=== PATIENT | male | born 2005 | race Caucasian/White ===

== ENCOUNTER 2024-07-09 13:17 | Emergency (ER) | payer MEDICAID ==
[~2024-07-09] VITALS: Ht 188 cm; Wt 125.0 kg
[2024-07-09 13:37] VITALS: BP 154/95; PULSE 81; RESP 18; TEMP 98.8; O2SAT 99
[2024-07-09] MEDS ORDERED: PRED10TA23 MT (15:27)
== END 2024-07-09 16:44 | disposition home or self-care (01) ==
LOC: ER 13:17
DX: R07.89 Other chest pain (principal); R05.9 Cough, unspecified; Z90.49 Acquired absence of other specified parts of digestive tract
CPT/HCPCS: 99283

== ENCOUNTER 2024-11-06 16:24 | Emergency (ER) | payer MEDICAID ==
[~2024-11-06] VITALS: Ht 188 cm; Wt 127.0 kg
[~2024-11-06 16:24] MED LIST: PRED10TA23 MT
[2024-11-06 16:27] VITALS: O2SAT 98
[2024-11-06] MEDS: KETOROLAC 30MG/ML VIAL IV STA (18:56)
[2024-11-06] MEDS: SODIUM CHLORIDE 0.9% 1,000 ML IV ONE (19:00)
[2024-11-06 20:15] LABS: HEMATOCRIT. 44.6 % (42.0-52.0); HEMOGLOBIN. 14.7 g/dL (14.0-18.0); MEAN CORPUSCULAR HEMOGLOBIN 30.1 pg (28.0-32.0); MEAN CORPUSCULAR VOLUME 91.2 fL (80.0-94.0); MEAN PLATELET VOLUME 7.3 fl (7.4-10.4); PLATELET 324 x1000/uL (130-400); RED BLOOD CELL COUNT 4.89 mill/uL (4.7-6.1); RED CELL DISTRIBUTION WIDTH 14.7 % (11.6-14.6); WHITE BLOOD COUNT 11.7 x1000/uL (4.5-11.0)
[2024-11-06 20:16] LABS: DIFFERENTIAL COMMENT 1
[2024-11-06 20:22] LABS: CHLORIDE 101 mEq/L (98-107); SODIUM 136 mEq/L (136-145)
[2024-11-06 20:23] LABS: CARBON DIOXIDE 24 mEq/L (21-32)
[2024-11-06 20:24] LABS: CALCIUM 9.8 mg/dL (8.7-10.4)
[2024-11-06 20:28] LABS: PROTHROMBIN TIME 11.1 sec (9.6-11.0)
[2024-11-06 20:29] LABS: CREATININE 0.8 mg/dL (0.6-1.3); GLUCOSE 96 mg/dL (70-105); UREA NITROGEN BLOOD 10 mg/dL (9-23)
[2024-11-06 23:01] LABS: PLATELET ESTIMATE NORMAL
[2024-11-06] MEDS ORDERED: CLINDAMYCIN 600 MG in DEXTROSE 5% WATER 50 ML IV STA (23:20)
[2024-11-07] MEDS: IOHEXOL-300 100 ML BOTTLE ONE (00:09)
[2024-11-07] MEDS: CLINDAMYCIN 600MG PREMIX 50 ML IV NR (00:13)
[2024-11-07 03:19] VITALS: BP 123/67; PULSE 88; RESP 17; TEMP 36.7
== END 2024-11-07 04:06 | disposition short-term general hospital (02) ==
LOC: ER 16:24
DX: L03.211 Cellulitis of face (principal); Z90.49 Acquired absence of other specified parts of digestive tract; Z79.899 Other long term (current) drug therapy
CPT/HCPCS: 99285; 70487; 96361; 96375; 80048; 85025; 85610; 36415; 96365; J1885; Q9967; J7030; J3490; J7060

== ENCOUNTER 2024-12-22 21:52 | Emergency (ER) | payer MEDICAID ==
[~2024-12-22] VITALS: Ht 190.5 cm; Wt 137.3 kg
[2024-12-22 22:29] VITALS: O2SAT 99
[2024-12-23] MEDS ORDERED: NAPR-681 MT (01:26)
[2024-12-23] MEDS ORDERED: CYCL10TA21 MT (01:26)
[2024-12-23] MEDS: CYCLOBENZAPRINE 10MG TABLET PO ONE (01:34)
[2024-12-23 01:39] VITALS: BP 118/78; PULSE 72; RESP 18; TEMP 36.7; O2SAT 99
== END 2024-12-23 01:41 | disposition home or self-care (01) ==
LOC: ER 21:52
DX: G62.9 Polyneuropathy, unspecified (principal); Z79.899 Other long term (current) drug therapy; Z79.1 Long term (current) use of non-steroidal anti-inflammatories (NSAID)
CPT/HCPCS: 93971; 99284

== ENCOUNTER 2024-12-30 08:56 | Emergency (ER) | payer MEDICAID ==
[~2024-12-30] VITALS: Ht 190.5 cm; Wt 125.0 kg
[~2024-12-30 08:56] MED LIST changes: +CYCL10TA21 MT; +NAPR-681 MT
[2024-12-30 08:59] VITALS: O2SAT 98
[2024-12-30 09:00] VITALS: BP 151/96; PULSE 93; RESP 20; TEMP 36.5; O2SAT 97
[2024-12-30] MEDS: ACETAMINOPHEN 325MG TABLET PO STA (10:55)
[2024-12-30] MEDS ORDERED: ALBU18HF2 IH (11:36)
[2024-12-30] MEDS ORDERED: D-ME473S50 PO (11:36)
== END 2024-12-30 12:42 | disposition home or self-care (01) ==
LOC: ER 08:56
DX: J20.9 Acute bronchitis, unspecified (principal); Z79.899 Other long term (current) drug therapy; Z90.49 Acquired absence of other specified parts of digestive tract; Z79.1 Long term (current) use of non-steroidal anti-inflammatories (NSAID)
CPT/HCPCS: 71045; 87070; 87430; 99284

== ENCOUNTER 2025-02-03 15:06 | Emergency (ER) | payer MEDICAID ==
[~2025-02-03] VITALS: Ht 188 cm; Wt 127.0 kg
[~2025-02-03 15:06] MED LIST changes: +ALBU18HF2 IH; +D-ME473S50 PO
[2025-02-03 15:24] VITALS: O2SAT 99
[2025-02-03] MEDS: KETOROLAC 30MG/ML VIAL IM ONE (16:32)
[2025-02-03] MEDS: LIDOCAINE 5% PATCH TOP SCH (16:33)
[2025-02-03] MEDS ORDERED: TC1C15 TP (16:54)
[2025-02-03] MEDS ORDERED: LIDO-53 TP (16:54)
[2025-02-03] MEDS ORDERED: CYCL10TA21 MT (16:54)
[2025-02-03] MEDS ORDERED: KETO10TA2 MT (16:54)
[2025-02-03 17:07] VITALS: BP 125/80; PULSE 85; RESP 14; TEMP 36.6; O2SAT 99
== END 2025-02-03 17:10 | disposition home or self-care (01) ==
LOC: ER 15:06
DX: L30.9 Dermatitis, unspecified (principal); M54.50 Low back pain, unspecified; Z79.1 Long term (current) use of non-steroidal anti-inflammatories (NSAID); Z90.49 Acquired absence of other specified parts of digestive tract; Z79.899 Other long term (current) drug therapy
CPT/HCPCS: 99283; 96372; J1885